=== PATIENT | female | born 1940 | race Caucasian/White ===

== ENCOUNTER → 2017-02-12 | Outpatient (CLI) | payer MEDICARE ==
[~2017-02-12] MED LIST: GADOBUTROL 10 MMOL/10 ML VIAL ONE
== END | disposition home or self-care (01) ==
LOC: CFH 08:21
PROVIDERS: ATTEND Radiology Radiation Oncology
DX: E23.7 Disorder of pituitary gland, unspecified (principal)
CPT/HCPCS: 70553; A9585

== ENCOUNTER → 2017-02-14 | Outpatient (CLI) | payer MEDICARE | END | disposition home or self-care (01) | LOC: ROC 07:44 | PROVIDERS: ATTEND Radiology Radiation Oncology | DX: Z08 Encounter for follow-up examination after completed treatment for malignant neoplasm (principal); D35.2 Benign neoplasm of pituitary gland; H54.61 Unqualified visual loss, right eye, normal vision left eye | CPT/HCPCS: G0463 ==

== ENCOUNTER → 2018-02-11 | Outpatient (CLI) | payer MEDICARE ==
[~2018-02-11] MED LIST changes: +LEVO50TA PO; +LINA290C PO; +LIOT5TAB10 MT; +OMEP40CA6 PO; +TRAZ100T15 PO
== END | disposition home or self-care (01) ==
LOC: CFH 12:45
PROVIDERS: ATTEND Radiology Radiation Oncology
DX: D35.2 Benign neoplasm of pituitary gland (principal)
CPT/HCPCS: 70553; A9585

== ENCOUNTER → 2018-02-13 | Outpatient (CLI) | payer MEDICARE ==
[~2018-02-13] MED LIST changes: +DEXA4TAB66 PO; -GADOBUTROL 10 MMOL/10 ML VIAL ONE
== END | disposition home or self-care (01) ==
LOC: ROC 07:27
PROVIDERS: ATTEND Radiology Radiation Oncology
DX: Z08 Encounter for follow-up examination after completed treatment for malignant neoplasm (principal); D35.2 Benign neoplasm of pituitary gland; D69.6 Thrombocytopenia, unspecified; H54.61 Unqualified visual loss, right eye, normal vision left eye
CPT/HCPCS: G0463

== ENCOUNTER 2018-02-14 08:08 | Inpatient (IN) | payer MEDICARE ==
[~2018-02-14] VITALS: Ht 162.6 cm; Wt 63.4 kg
[2018-02-14] MEDS ORDERED: SODIUM CHLORIDE FLUSH 10ML SYR IVF ONE (09:00)
[2018-02-14] MEDS ORDERED: LINA290C PO (09:09)
[2018-02-14] MEDS ORDERED: LEVO50TA PO (09:12)
[2018-02-14] MEDS ORDERED: LIOT5TAB10 MT (09:13)
[2018-02-14] MEDS ORDERED: TRAZ100T15 PO (09:13)
[2018-02-14] MEDS ORDERED: OMEP40CA6 PO (09:14)
[2018-02-14 09:37] LABS: ALBUMIN 3.6 g/dL (3.4-5.0); ANION GAP 6 mmol/L (5-15); CALCIUM 8.8 mg/dL (8.5-10.1); CHLORIDE 112 mmol/L (98-107)
[2018-02-14 09:41] LABS: ALANINE AMINOTRANSFERASE 19 U/L (12-78); ALKALINE PHOSPHATASE 84 U/L (45-117); BILIRUBIN,TOTAL 0.5 mg/dL (0.2-1.0); CREATININE 0.97 mg/dL (0.55-1.02); TOTAL PROTEIN 7.1 g/dL (6.4-8.2)
[2018-02-14 10:31] LABS: MEAN CORPUSCULAR HEMOGLOBIN 29.3 pg (27.0-34.8); MEAN CORPUSCULAR HGB CONC 33.2 g/dL (32.4-35.8); MEAN PLATELET VOLUME 8.1 fL (7.4-10.4); PLATELET COUNT 4 x10^3/uL (130-400); RED BLOOD COUNT 4.56 x10^6/uL (3.82-5.3); RED CELL DISTRIBUTION WIDTH 14.1 % (9.6-15.2)
[2018-02-14 10:32] LABS: HEMOGRAM NOTE RECHECKED
[2018-02-14 10:34] LABS: BASOPHILS # (AUTO) 0.01 x10^3/uL (0-0.1); BASOPHILS % (AUTO) 0 % (0-1); EOSINOPHILS % (AUTO) 0 % (1-7); LYMPHOCYTES # (AUTO) 1.14 x10^3/uL (1-3.4); LYMPHOCYTES % (AUTO) 37 % (22-44); MD MORPH REVIEW ONLY; MONOCYTES # (AUTO) 0.29 x10^3/uL (0.2-0.8); MONOCYTES % (AUTO) 9 % (2-9); NEUTROPHILS # (AUTO) 1.66 x10^3/uL (1.8-6.8); NEUTROPHILS % (AUTO) 54 % (42-75)
[2018-02-14 10:35] LABS: <PLATELET ESTIMATE> DECREASED; <PLT MORPHOLOGY> QNS FOR PLT MORPH; <RBC MORPHOLOGY> NORMAL
[2018-02-14] MEDS ORDERED: ONDANSETRON ODT 4 MG ONE (10:36)
[2018-02-14] MEDS ORDERED: ONDANSETRON ODT 4 MG PO ONE (11:00)
[2018-02-14 11:21] LABS: INTERNATIONAL NORMALIZED RATIO 0.98 (0.93-1.1); PROTHROMBIN TIME 10.1 Seconds (9.6-11.5)
[2018-02-14] MEDS ORDERED: DEXAMETHASONE 40 MG in SODIUM CHLORIDE 0.9% 50 ML IV ONE (11:30)
[2018-02-14] MEDS ORDERED: DEXAMETHASONE 4 MG/ML, 1ML IVPush ONE (11:30)
[2018-02-14] MEDS ORDERED: IMMUNE GLOBULIN IV ONE (11:30)
[2018-02-14] MEDS ORDERED: IMMUNE GLOB (GAMUNEX) 10GM/100ML IVPB ONE (11:30)
[2018-02-14 12:13] VITALS: BP 113/75
[2018-02-14 12:25] VITALS: BP 118/99
[2018-02-14] MEDS ORDERED: DIPHENHYDRAMINE 50 MG/ML, 1ML ONE ×2 (12:26→12:32)
[2018-02-14] MEDS ORDERED: SODIUM CHLORIDE 0.9% 1,000 ML IV ONE (12:28)
[2018-02-14] MEDS ORDERED: DIPHENHYDRAMINE 50 MG/ML, 1ML IVPush ONE (12:30)
[2018-02-14] MEDS ORDERED: DEXAMETHASONE 4 MG/ML, 5ML ONE (12:32)
[2018-02-14] MEDS ORDERED: ALBUTEROL/IPRATROPIUM 2.5MG/0.5MG, 3 ML ONE (12:37)
[2018-02-14] MEDS ORDERED: LORazepam 2 MG/ML, 1ML IVPush STA (13:35)
[2018-02-14] MEDS ORDERED: LORazepam 2 MG/ML, 1ML ONE (13:37)
[2018-02-14] MEDS ORDERED: DEXAMETHASONE 20 MG in SODIUM CHLORIDE 0.9% 50 ML IV ONE (15:00)
[2018-02-14] MEDS ORDERED: hydrALAzine 20 MG/ML, 1ML IVPush PRN (15:00)
[2018-02-14] MEDS ORDERED: BISACODYL 10 MG SUPP PR PRN (15:00)
[2018-02-14] MEDS ORDERED: POLYETHYLENE GLYCOL 17 GM PACKET PO PRN (15:00)
[2018-02-14] MEDS ORDERED: ACETAMINOPHEN 325 MG TABLET PO PRN (15:00)
[2018-02-14] MEDS ORDERED: ONDANSETRON ODT 4 MG PO PRN (15:00)
[2018-02-14] MEDS ORDERED: DOCUSATE 100 MG CAPSULE PO PRN (15:00)
[2018-02-14 15:23] VITALS: BP 91/57
[2018-02-14] MEDS ORDERED: IMMUNE GLOBULIN 60 GM in VIAL 0 EACH IV ONE ×2 (15:30→16:36)
[2018-02-14] MEDS ORDERED: DEXAMETHASONE 4 MG/ML, 1ML IVPB SCH (16:00)
[2018-02-14] MEDS: SODIUM CHLORIDE 0.9% 1,000 ML IV SCH (16:47)
[2018-02-14] MEDS ORDERED: TRAZODONE 100MG TABLET PO SCH (21:00)
[2018-02-14] MEDS: LIOTHYRONINE 5 MCG TABLET PO SCH (21:28)
[2018-02-14] MEDS: TRAZODONE 100MG TABLET PO SCH (21:30)
[2018-02-14 21:54] VITALS: BP 112/66
[2018-02-15 02:06] VITALS: BP 112/70
[2018-02-15] MEDS: SODIUM CHLORIDE 0.9% 1,000 ML IV SCH ×2 (04:10→12:53)
[2018-02-15] MEDS: LEVOTHYROXINE 50 MCG TABLET PO SCH (04:32)
[2018-02-15 05:04] LABS: ALBUMIN 2.9 g/dL (3.4-5.0); ANION GAP 5 mmol/L (5-15); CALCIUM 8.2 mg/dL (8.5-10.1); CHLORIDE 111 mmol/L (98-107)
[2018-02-15 05:15] LABS: ALANINE AMINOTRANSFERASE 20 U/L (12-78); ALKALINE PHOSPHATASE 58 U/L (45-117); BILIRUBIN,TOTAL 0.4 mg/dL (0.2-1.0); FREE T4 (FREE THYROXINE) 0.57 ng/dL (0.76-1.46); TOTAL PROTEIN 7.9 g/dL (6.4-8.2)
[2018-02-15 05:26] LABS: MEAN CORPUSCULAR HEMOGLOBIN 29.8 pg (27.0-34.8); MEAN CORPUSCULAR HGB CONC 33.9 g/dL (32.4-35.8); MEAN PLATELET VOLUME 10.4 fL (7.4-10.4); RED BLOOD COUNT 3.89 x10^6/uL (3.82-5.3); RED CELL DISTRIBUTION WIDTH 14.5 % (9.6-15.2)
[2018-02-15 05:37] LABS: PLATELET COUNT 17 x10^3/uL (130-400)
[2018-02-15 05:52] LABS: MD YES
[2018-02-15 05:55] LABS: BAND#(MANUAL) 0.09 x10^3/uL; BANDS%(MANUAL) 2 % (0-7); LYMPHS% (MANUAL) 11 % (22-44); MONOS#(MANUAL) 0.18 x10^3/uL (0.3-2.7); MONOS% (MANUAL) 4 % (2-9); SEG#(MANUAL) 3.74 x10^3/uL (1.8-6.8); SEGS% (MANUAL) 83 % (42-75)
[2018-02-15 05:56] LABS: <PLATELET ESTIMATE> DECREASED; <PLT MORPHOLOGY> NORMAL PLT MORPH; <RBC MORPHOLOGY> NORMAL
[2018-02-15 07:04] VITALS: BP 111/67
[2018-02-15] MEDS ORDERED: LIOTHYRONINE 5 MCG TABLET PO SCH (09:00)
[2018-02-15] MEDS: DEXAMETHASONE IV SCH (09:36)
[2018-02-15] MEDS: SODIUM CHLORIDE 0.9% IV SCH (09:36)
[2018-02-15 12:37] VITALS: BP 102/55
[2018-02-15] MEDS ORDERED: IMMUNE GLOBULIN 60 GM in VIAL 0 EACH IV ONE (15:00)
[2018-02-15] MEDS ORDERED: IMMUNE GLOB (GAMUNEX) 10GM/100ML IVPB ONE (15:30)
[2018-02-15 20:13] VITALS: BP 121/74
[2018-02-15] MEDS: LIOTHYRONINE 5 MCG TABLET PO SCH (20:45)
[2018-02-15] MEDS: TRAZODONE 100MG TABLET PO SCH (20:46)
[2018-02-15] MEDS ORDERED: TRAZODONE 100MG TABLET PO SCH (21:00)
[2018-02-16 00:40] VITALS: BP 105/63
[2018-02-16 04:29] LABS: MEAN CORPUSCULAR HEMOGLOBIN 28.9 pg (27.0-34.8); MEAN CORPUSCULAR HGB CONC 32.9 g/dL (32.4-35.8); RED BLOOD COUNT 3.55 x10^6/uL (3.82-5.3); RED CELL DISTRIBUTION WIDTH 14.8 % (9.6-15.2)
[2018-02-16 04:45] LABS: ANISOCYTOSIS 1+; BASOPHILS # (AUTO) 0.01 x10^3/uL (0-0.1); BASOPHILS % (AUTO) 0 % (0-1); EOSINOPHILS % (AUTO) 0 % (1-7); LYMPHOCYTES # (AUTO) 0.66 x10^3/uL (1-3.4); LYMPHOCYTES % (AUTO) 7 % (22-44); MD MORPH REVIEW ONLY; MEAN PLATELET VOLUME 11.8 fL (7.4-10.4); MONOCYTES # (AUTO) 0.33 x10^3/uL (0.2-0.8); MONOCYTES % (AUTO) 4 % (2-9); NEUTROPHILS # (AUTO) 7.86 x10^3/uL (1.8-6.8); NEUTROPHILS % (AUTO) 89 % (42-75); PLATELET COUNT 54 x10^3/uL (130-400)
[2018-02-16 04:46] LABS: <PLATELET ESTIMATE> DECREASED; <PLT MORPHOLOGY> NORMAL PLT MORPH; OVALOCYTES 1+
[2018-02-16] MEDS: LEVOTHYROXINE 50 MCG TABLET PO SCH (05:51)
[2018-02-16] MEDS: SODIUM CHLORIDE 0.9% 1,000 ML IV SCH (05:52)
[2018-02-16 06:39] VITALS: BP 118/71
[2018-02-16] MEDS ORDERED: OMEPRAZOLE 20 MG CAPSULE.DR PO SCH (07:30)
[2018-02-16] MEDS: DEXAMETHASONE IV SCH (08:52)
[2018-02-16] MEDS: SODIUM CHLORIDE 0.9% IV SCH (08:52)
[2018-02-16] MEDS ORDERED: PINK LADY ENEMA 1,000 ML PR ONE (11:00)
[2018-02-16 12:03] VITALS: BP 131/69
[2018-02-16 12:13] LABS: BASOPHILS % (AUTO) 0 % (0-1); EOSINOPHILS % (AUTO) 0 % (1-7); LYMPHOCYTES # (AUTO) 0.54 x10^3/uL (1-3.4); LYMPHOCYTES % (AUTO) 6 % (22-44); MD NO; MEAN CORPUSCULAR HEMOGLOBIN 29.1 pg (27.0-34.8); MEAN CORPUSCULAR HGB CONC 33.1 g/dL (32.4-35.8); MEAN CORPUSCULAR VOLUME 87.7 fL (80-100); MEAN PLATELET VOLUME 11.5 fL (7.4-10.4); MONOCYTES # (AUTO) 0.36 x10^3/uL (0.2-0.8); MONOCYTES % (AUTO) 4 % (2-9); NEUTROPHILS # (AUTO) 8.65 x10^3/uL (1.8-6.8); NEUTROPHILS % (AUTO) 91 % (42-75); PLATELET COUNT 81 x10^3/uL (130-400); RED BLOOD COUNT 3.64 x10^6/uL (3.82-5.3); RED CELL DISTRIBUTION WIDTH 14.7 % (9.6-15.2)
[2018-02-16] MEDS ORDERED: DEXA4TAB66 PO (15:09)
== END 2018-02-16 16:09 | disposition home or self-care (01) | DRG 813 ==
LOC: ED 09:42 → EDIP 11:30 → 3NW 14:54
PROVIDERS: ADMIT Hospitalist; ATTEND Hospitalist
PROC: 30233R1 Transfusion of Nonautologous Platelets into Peripheral Vein, Percutaneous Approach (ICD-10-PCS; principal; 2018-02-14)
PROC: 30233S1 Transfusion of Nonautologous Globulin into Peripheral Vein, Percutaneous Approach (ICD-10-PCS; 2018-02-14)
DX: D69.3 Immune thrombocytopenic purpura (principal); C19 Malignant neoplasm of rectosigmoid junction; J98.11 Atelectasis; T80.92XA Unspecified transfusion reaction, initial encounter; D35.2 Benign neoplasm of pituitary gland; D72.819 Decreased white blood cell count, unspecified; E03.9 Hypothyroidism, unspecified; K21.9 Gastro-esophageal reflux disease without esophagitis; K59.09 Other constipation; R04.0 Epistaxis; Y84.8 Other medical procedures as the cause of abnormal reaction of the patient, or of later complication, without mention of misadventure at the time of the procedure; Y92.89 Other specified places as the place of occurrence of the external cause; Z90.49 Acquired absence of other specified parts of digestive tract; Z85.048 Personal history of other malignant neoplasm of rectum, rectosigmoid junction, and anus; Z84.89 Family history of other specified conditions
CPT/HCPCS: 36415; 36430; 74022; 76700; 80053; 83690; 84439; 84481; 85025; 85610; 85730; 86038; 86078; 86704; 86705; 86706; 86708; 86709; 86803; 86850; 86900; 87040; 87205; 87340; 87806; 99285; J1100; J1561; Q0162; G0475; J1200; J2060; J7030; P9035

== ENCOUNTER → 2018-02-18 | Outpatient (CLI) | payer MEDICARE ==
[2018-02-18 13:44] LABS: MEAN CORPUSCULAR HEMOGLOBIN 29.7 pg (27.0-34.8); MEAN CORPUSCULAR HGB CONC 34.1 g/dL (32.4-35.8); MEAN CORPUSCULAR VOLUME 87.2 fL (80-100); MEAN PLATELET VOLUME 10.3 fL (7.4-10.4); PLATELET COUNT 181 x10^3/uL (130-400); RED BLOOD COUNT 4.06 x10^6/uL (3.82-5.3); RED CELL DISTRIBUTION WIDTH 14.6 % (9.6-15.2)
== END | disposition home or self-care (01) ==
LOC: LAB 12:40
PROVIDERS: ATTEND Nurse Practitioner
DX: D69.3 Immune thrombocytopenic purpura (principal)
CPT/HCPCS: 36415; 85027

== ENCOUNTER 2018-02-25 13:08 | Inpatient (IN) | payer MEDICARE ==
[~2018-02-25] VITALS: Ht 162.6 cm; Wt 63.1 kg
[2018-02-25 16:58] VITALS: BP 121/87
[2018-02-25] MEDS ORDERED: ONDANSETRON 2MG/ML, 2ML IVPush PRN (18:30)
[2018-02-25] MEDS ORDERED: POLYETHYLENE GLYCOL 17 GM PACKET PO PRN (18:30)
[2018-02-25] MEDS ORDERED: ACETAMINOPHEN 325 MG TABLET PO PRN (18:30)
[2018-02-25] MEDS ORDERED: hydrALAzine 20 MG/ML, 1ML IVPush PRN (18:30)
[2018-02-25] MEDS ORDERED: DOCUSATE 100 MG CAPSULE PO PRN (18:30)
[2018-02-25] MEDS ORDERED: BISACODYL 10 MG SUPP PR PRN (18:30)
[2018-02-25] MEDS ORDERED: IMMUN GLOB IV ONE (19:00)
[2018-02-25 19:10] VITALS: BP 123/80
[2018-02-25 19:41] LABS: ANION GAP 4 mmol/L (5-15); CALCIUM 8.2 mg/dL (8.5-10.1); CHLORIDE 109 mmol/L (98-107); CREATININE 1.11 mg/dL (0.55-1.02)
[2018-02-25 19:57] LABS: MD YES
[2018-02-25 19:58] LABS: MEAN CORPUSCULAR HEMOGLOBIN 29.6 pg (27.0-34.8); MEAN CORPUSCULAR HGB CONC 33.3 g/dL (32.4-35.8); MEAN CORPUSCULAR VOLUME 88.8 fL (80-100); RED BLOOD COUNT 4.35 x10^6/uL (3.82-5.3); RED CELL DISTRIBUTION WIDTH 15.1 % (9.6-15.2)
[2018-02-25 19:59] LABS: LYMPH#(MANUAL) 1.46 x10^3/uL (1-3.4); LYMPHS% (MANUAL) 31 % (22-44); MONOS#(MANUAL) 0.14 x10^3/uL (0.3-2.7); MONOS% (MANUAL) 3 % (2-9); SEGS% (MANUAL) 66 % (42-75)
[2018-02-25 20:00] LABS: <PLATELET ESTIMATE> DECREASED; <PLT MORPHOLOGY> QNS FOR PLT MORPH; <RBC MORPHOLOGY> NORMAL
[2018-02-25 20:04] LABS: MEAN PLATELET VOLUME 10.9 fL (7.4-10.4)
[2018-02-25 20:06] LABS: PLATELET COUNT 18 x10^3/uL (130-400)
[2018-02-25] MEDS: SODIUM CHLORIDE FLUSH 10ML SYR IVF SCH (21:28)
[2018-02-25] MEDS: TRAZODONE 100MG TABLET PO SCH (21:28)
[2018-02-25] MEDS: LIOTHYRONINE 5 MCG TABLET PO SCH (22:04)
[2018-02-26 01:20] VITALS: BP 115/72
[2018-02-26] MEDS: LEVOTHYROXINE 50 MCG TABLET PO SCH (04:50)
[2018-02-26 06:11] LABS: CHLORIDE 110 mmol/L (98-107)
[2018-02-26 06:18] LABS: ALANINE AMINOTRANSFERASE 32 U/L (12-78); ALBUMIN 2.4 g/dL (3.4-5.0); ALKALINE PHOSPHATASE 63 U/L (45-117); ANION GAP 6 mmol/L (5-15); BILIRUBIN,TOTAL 0.4 mg/dL (0.2-1.0); CALCIUM 7.9 mg/dL (8.5-10.1); CREATININE 0.95 mg/dL (0.55-1.02); TOTAL PROTEIN 8.1 g/dL (6.4-8.2)
[2018-02-26 06:47] LABS: BASOPHILS # (AUTO) 0.01 x10^3/uL (0-0.1); BASOPHILS % (AUTO) 0 % (0-1); EOSINOPHILS % (AUTO) 0 % (1-7); LYMPHOCYTES # (AUTO) 1.17 x10^3/uL (1-3.4); LYMPHOCYTES % (AUTO) 32 % (22-44); MD SCAN; MEAN CORPUSCULAR HEMOGLOBIN 29.3 pg (27.0-34.8); MEAN CORPUSCULAR HGB CONC 33.3 g/dL (32.4-35.8); MEAN CORPUSCULAR VOLUME 87.9 fL (80-100); MONOCYTES # (AUTO) 0.33 x10^3/uL (0.2-0.8); MONOCYTES % (AUTO) 9 % (2-9); NEUTROPHILS # (AUTO) 2.18 x10^3/uL (1.8-6.8); NEUTROPHILS % (AUTO) 59 % (42-75); RED BLOOD COUNT 3.91 x10^6/uL (3.82-5.3)
[2018-02-26 06:49] LABS: PLATELET COUNT 8 x10^3/uL (130-400)
[2018-02-26 07:59] VITALS: BP 114/74
[2018-02-26] MEDS ORDERED: DEXAMETHASONE 4 MG TABLET PO SCH (09:00)
[2018-02-26] MEDS ORDERED: LIOTHYRONINE 5 MCG TABLET PO SCH (09:00)
[2018-02-26] MEDS ORDERED: DEXAMETHASONE 4 MG/ML, 5ML IVPush SCH (09:00)
[2018-02-26] MEDS ORDERED: DEXTROSE 5% IV SCH (09:00)
[2018-02-26] MEDS ORDERED: DEXAMETHASONE IV SCH (09:00)
[2018-02-26] MEDS: SODIUM CHLORIDE FLUSH 10ML SYR IVF SCH ×2 (09:13→20:25)
[2018-02-26 13:16] VITALS: BP 105/61
[2018-02-26] MEDS: SUCRALFATE 1 GM/10 ML UDC PO PRN ×2 (15:43→23:38)
[2018-02-26 17:19] LABS: MEAN CORPUSCULAR HEMOGLOBIN 28.7 pg (27.0-34.8); MEAN CORPUSCULAR HGB CONC 32.8 g/dL (32.4-35.8); MEAN CORPUSCULAR VOLUME 87.5 fL (80-100); RED BLOOD COUNT 4.43 x10^6/uL (3.82-5.3); RED CELL DISTRIBUTION WIDTH 14.5 % (9.6-15.2)
[2018-02-26] MEDS: methylPREDNISolone SOD SUCC 125 MG/2 ML IVPush SCH ×2 (17:30→18:08)
[2018-02-26 17:41] LABS: MEAN PLATELET VOLUME 10.5 fL (7.4-10.4)
[2018-02-26 17:45] LABS: PLATELET COUNT 18 x10^3/uL (130-400)
[2018-02-26 17:48] LABS: BASOPHILS # (AUTO) 0.01 x10^3/uL (0-0.1); BASOPHILS % (AUTO) 0 % (0-1); EOSINOPHILS % (AUTO) 0 % (1-7); LYMPHOCYTES # (AUTO) 0.45 x10^3/uL (1-3.4); LYMPHOCYTES % (AUTO) 10 % (22-44); MD SCAN; MONOCYTES # (AUTO) 0.05 x10^3/uL (0.2-0.8); MONOCYTES % (AUTO) 1 % (2-9); NEUTROPHILS # (AUTO) 4.19 x10^3/uL (1.8-6.8); NEUTROPHILS % (AUTO) 89 % (42-75)
[2018-02-26 19:09] VITALS: BP 137/83
[2018-02-26] MEDS: TRAZODONE 100MG TABLET PO SCH (20:24)
[2018-02-26] MEDS: LIOTHYRONINE 5 MCG TABLET PO SCH (20:25)
[2018-02-27] MEDS: methylPREDNISolone SOD SUCC 125 MG/2 ML IVPush SCH ×3 (01:51→17:42)
[2018-02-27 01:57] VITALS: BP 116/73
[2018-02-27 04:48] LABS: MEAN CORPUSCULAR HEMOGLOBIN 29.1 pg (27.0-34.8); MEAN CORPUSCULAR HGB CONC 33.1 g/dL (32.4-35.8); MEAN CORPUSCULAR VOLUME 87.8 fL (80-100); RED BLOOD COUNT 4.22 x10^6/uL (3.82-5.3); RED CELL DISTRIBUTION WIDTH 14.9 % (9.6-15.2)
[2018-02-27 05:48] LABS: MEAN PLATELET VOLUME 11.2 fL (7.4-10.4)
[2018-02-27 05:49] LABS: BASOPHILS # (AUTO) 0.01 x10^3/uL (0-0.1); BASOPHILS % (AUTO) 0 % (0-1); EOSINOPHILS # (AUTO) 0.01 x10^3/uL (0-0.4); EOSINOPHILS % (AUTO) 0 % (1-7); LYMPHOCYTES # (AUTO) 0.72 x10^3/uL (1-3.4); LYMPHOCYTES % (AUTO) 9 % (22-44); MD SCAN; MONOCYTES # (AUTO) 0.03 x10^3/uL (0.2-0.8); MONOCYTES % (AUTO) 0 % (2-9); NEUTROPHILS # (AUTO) 7.35 x10^3/uL (1.8-6.8); NEUTROPHILS % (AUTO) 91 % (42-75); PLATELET COUNT 29 x10^3/uL (130-400)
[2018-02-27] MEDS: LEVOTHYROXINE 50 MCG TABLET PO SCH (06:23)
[2018-02-27 07:01] VITALS: BP 119/66
[2018-02-27] MEDS: SODIUM CHLORIDE FLUSH 10ML SYR IVF SCH ×2 (09:00→20:49)
[2018-02-27] MEDS: SUCRALFATE 1 GM/10 ML UDC PO PRN ×2 (09:20→20:56)
[2018-02-27] MEDS: LIOTHYRONINE 5 MCG TABLET PO SCH (09:21)
[2018-02-27 14:39] VITALS: BP 135/88
[2018-02-27 19:18] VITALS: BP 136/69
[2018-02-27] MEDS: TRAZODONE 100MG TABLET PO SCH (20:49)
[2018-02-28] MEDS: methylPREDNISolone SOD SUCC 125 MG/2 ML IVPush SCH ×2 (01:22→08:25)
[2018-02-28 01:32] VITALS: BP 109/72
[2018-02-28] MEDS: LEVOTHYROXINE 50 MCG TABLET PO SCH (05:28)
[2018-02-28 05:41] LABS: ANION GAP 6 mmol/L (5-15); CALCIUM 8.6 mg/dL (8.5-10.1); CHLORIDE 109 mmol/L (98-107)
[2018-02-28 05:43] LABS: CREATININE 0.94 mg/dL (0.55-1.02)
[2018-02-28 05:50] LABS: MEAN CORPUSCULAR HEMOGLOBIN 29.4 pg (27.0-34.8); MEAN CORPUSCULAR HGB CONC 33.5 g/dL (32.4-35.8); MEAN CORPUSCULAR VOLUME 87.8 fL (80-100); RED BLOOD COUNT 4.01 x10^6/uL (3.82-5.3); RED CELL DISTRIBUTION WIDTH 14.9 % (9.6-15.2)
[2018-02-28 06:24] LABS: BASOPHILS % (AUTO) 0 % (0-1); EOSINOPHILS % (AUTO) 0 % (1-7); LYMPHOCYTES # (AUTO) 0.65 x10^3/uL (1-3.4); LYMPHOCYTES % (AUTO) 6 % (22-44); MD SCAN; MEAN PLATELET VOLUME 10.5 fL (7.4-10.4); MONOCYTES # (AUTO) 0.14 x10^3/uL (0.2-0.8); MONOCYTES % (AUTO) 1 % (2-9); NEUTROPHILS # (AUTO) 10.04 x10^3/uL (1.8-6.8); NEUTROPHILS % (AUTO) 93 % (42-75); PLATELET COUNT 70 x10^3/uL (130-400)
[2018-02-28 06:50] VITALS: BP 113/73
[2018-02-28] MEDS: SODIUM CHLORIDE FLUSH 10ML SYR IVF SCH ×2 (08:25→20:24)
[2018-02-28] MEDS: LIOTHYRONINE 5 MCG TABLET PO SCH ×2 (09:00→20:23)
[2018-02-28] MEDS: SUCRALFATE 1 GM/10 ML UDC PO PRN ×2 (12:08→20:24)
[2018-02-28] MEDS ORDERED: FAMOTIDINE 20 MG TABLET PO ONE (17:30)
[2018-02-28] MEDS ORDERED: RITUXIMAB 700 MG in SODIUM CHLORIDE 0.9% 250 ML IV ONE (17:30)
[2018-02-28] MEDS ORDERED: ACETAMINOPHEN 325 MG TABLET PO ONE (17:30)
[2018-02-28] MEDS ORDERED: DIPHENHYDRAMINE 50 MG CAPSULE PO ONE (17:30)
[2018-02-28 19:26] VITALS: BP 118/78
[2018-02-28] MEDS: TRAZODONE 100MG TABLET PO SCH (20:23)
[2018-03-01 04:15] VITALS: BP 109/67
[2018-03-01 04:40] LABS: MEAN CORPUSCULAR HEMOGLOBIN 29.2 pg (27.0-34.8); MEAN CORPUSCULAR HGB CONC 33.3 g/dL (32.4-35.8); MEAN CORPUSCULAR VOLUME 87.7 fL (80-100); RED BLOOD COUNT 3.84 x10^6/uL (3.82-5.3); RED CELL DISTRIBUTION WIDTH 14.8 % (9.6-15.2)
[2018-03-01 05:23] LABS: BASOPHILS # (AUTO) 0.02 x10^3/uL (0-0.1); BASOPHILS % (AUTO) 0 % (0-1); EOSINOPHILS # (AUTO) 0.01 x10^3/uL (0-0.4); EOSINOPHILS % (AUTO) 0 % (1-7); LYMPHOCYTES # (AUTO) 1.04 x10^3/uL (1-3.4); LYMPHOCYTES % (AUTO) 13 % (22-44); MD SCAN; MEAN PLATELET VOLUME 11.2 fL (7.4-10.4); MONOCYTES # (AUTO) 0.41 x10^3/uL (0.2-0.8); MONOCYTES % (AUTO) 5 % (2-9); NEUTROPHILS # (AUTO) 6.91 x10^3/uL (1.8-6.8); NEUTROPHILS % (AUTO) 82 % (42-75); PLATELET COUNT 91 x10^3/uL (130-400)
[2018-03-01] MEDS: LEVOTHYROXINE 50 MCG TABLET PO SCH (05:46)
[2018-03-01] MEDS: SODIUM CHLORIDE FLUSH 10ML SYR IVF SCH (07:52)
[2018-03-01] MEDS: SUCRALFATE 1 GM/10 ML UDC PO PRN (08:00)
[2018-03-01 08:59] VITALS: BP 97/61
[2018-03-01 10:43] VITALS: BP 109/68
[2018-03-01] MEDS ORDERED: PRED20TA PO (11:39)
[2018-03-01] MEDS ORDERED: SUCR1ORA5 PO (11:49)
[2018-03-01 12:26] VITALS: BP 107/69
[2018-03-01] MEDS ORDERED: DIPHENHYDRAMINE 50 MG/ML, 1ML IVPush ONE (13:30)
[2018-03-01] MEDS ORDERED: ACETAMINOPHEN 325 MG TABLET PO ONE (13:30)
[2018-03-01] MEDS ORDERED: FAMOTIDINE 20 MG/2 ML IVPush ONE (13:30)
[2018-03-01] MEDS ORDERED: SODIUM CHLORIDE 0.9% IV ONE (14:00)
[2018-03-01] MEDS ORDERED: RITUXIMAB IV ONE (14:00)
[2018-03-01 19:52] VITALS: BP 130/78
== END 2018-03-01 20:10 | disposition home or self-care (01) | DRG 813 ==
LOC: 3NW 16:28
PROVIDERS: ADMIT Internal Medicine; ATTEND Internal Medicine
DX: D69.3 Immune thrombocytopenic purpura (principal); S90.122A Contusion of left lesser toe(s) without damage to nail, initial encounter; K59.09 Other constipation; E03.9 Hypothyroidism, unspecified; K21.9 Gastro-esophageal reflux disease without esophagitis; R04.0 Epistaxis; Z90.710 Acquired absence of both cervix and uterus; Z85.048 Personal history of other malignant neoplasm of rectum, rectosigmoid junction, and anus
CPT/HCPCS: 36415; 80048; 80053; 85025; J1100; J1569; J2405; J1200; J2930; J7050; J7512; J9310; S0028

== ENCOUNTER 2018-02-25 15:39 | Emergency (ER) | payer MEDICARE ==
[~2018-02-25] VITALS: Ht 162.6 cm; Wt 60.9 kg
[2018-02-25 15:52] VITALS: BP 145/77
== END 2018-02-25 17:03 | disposition left against medical advice (07) ==
LOC: ED 16:55
DX: D69.6 Thrombocytopenia, unspecified (principal)
CPT/HCPCS: 99281

== ENCOUNTER → 2018-03-29 | Outpatient (CLI) | payer MEDICARE ==
[~2018-03-29] MED LIST changes: +PRED20TA PO; +SUCR1ORA5 PO; +TRAZ-137 PO; -TRAZ100T15 PO
== END | disposition home or self-care (01) ==
LOC: STAR 12:18
PROVIDERS: ATTEND Nurse Practitioner
DX: D69.3 Immune thrombocytopenic purpura (principal); I25.2 Old myocardial infarction; R00.8 Other abnormalities of heart beat
CPT/HCPCS: 93005

== ENCOUNTER → 2018-04-12 | Outpatient (CLI) | payer MEDICARE | END | disposition home or self-care (01) | LOC: STAR 09:57 | PROVIDERS: ATTEND Internal Medicine Hematology & Oncology | DX: I49.8 Other specified cardiac arrhythmias (principal); D69.3 Immune thrombocytopenic purpura | CPT/HCPCS: 93005 ==

== ENCOUNTER → 2018-11-06 | Outpatient (CLI) | payer MEDICARE | END | disposition home or self-care (01) | LOC: CFH 13:30 | PROVIDERS: ATTEND Nurse Practitioner Family | DX: Z12.31 Encounter for screening mammogram for malignant neoplasm of breast (principal); Z13.820 Encounter for screening for osteoporosis; M85.88 Other specified disorders of bone density and structure, other site | CPT/HCPCS: 77080; 77067 ==